=== PATIENT | male | born 2000 | race Caucasian/White ===

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

== ENCOUNTER 2022-10-31 17:36 | Emergency (ER) | payer MEDICAID ==
[~2022-10-31 17:36] MED LIST: ACHD5005 PO; SILV20CR14 TP
--- NOTE | 2022-10-31 18:07 | ED Abdominal Pain ---
General Chief Complaint: Abdominal/GI Problems Stated Complaint: ABD PAIN/DIARRHEA Nursing Triage Note: PT REPORTS DIARRHEA FOR A YEAR. HE HAS BRIGHT RED BLOOD WHEN HE WIPES AND HE REPORTS HIS STOOLS HAVE BEEN BLACK AT TIMES. HAS A KNOWN HEMMORHOID. History of Present Illness Date Seen by Provider: Oct 31, 2022 Time Seen by Provider: 18:05 Initial Comments 22-year-old male here with complaints of year-long symptoms of loose bowel movements diarrhea. Patient is having pain that comes and goes. States usually he will eat and then it will happen. Left go to the bathroom. Patient has not seen a doctor for this. No nausea or vomiting. States if he tries to hold it and then does not go then would later on when he does go all the time. No. Does have some blood in there. Mostly when he wipes. Will go couple times a day. Allergies and Home Medications Allergies Coded Allergies: No Known Drug Allergies (Unverified , 05/04/20) Patient Home Medication List Home Medication List Reviewed: Yes Hydrocodone/Acetaminophen (Hydrocodone-Acetamin 5-325 mg) 1 Each Tablet, 1 EACH PO Q4H Prescribed by: KEVIN SHAFFER on 05/04/202245 Silver Sulfadiazine (Silvadene) 20 Gm Cream..g., 20 GM TP DAILY Prescribed by: KEVIN SHAFFER on 05/04/202245 Review of Systems Review of Systems Constitutional: see HPI Past Cwthoud-Qinvax-Xyhbyu Hx Patient Social History Tobacco Use?: No Use of E-Cig and/or Vaping dev: No Substance use?: No Alcohol Use?: No Pt feels they are or have been: No Immunizations Up To Date PED Vaccines UTD: Yes Seasonal Allergies Seasonal Allergies: No Past Medical History Surgeries: No Respiratory: No Cardiac: No Neurological: No Genitourinary: No Gastrointestinal: No Musculoskeletal: No Endocrine: No HEENT: No Cancer: No Psychosocial: No Integumentary: No Blood Disorders: No Physical Exam Vital Signs Vital Signs - First Documented 10/31/22 17:46 Temp 36.8 Pulse 123 Resp 18 B/P (MAP) 136/82 (100) Pulse Ox 100 O2 Delivery Room Air Capillary Refill : Less Than 3 Seconds Height/Weight/BMI Height: '" Weight: lbs. oz. kg; 21.00 BMI Method: General Appearance: WD/WN, no apparent distress HEENT: PERRL/EOMI, TMs normal, pharynx normal Neck: non-tender, supple Respiratory: chest non-tender, lungs clear, normal breath sounds, no r espiratory distress Cardiovascular: regular rate, rhythm, no murmur Gastrointestinal: normal bowel sounds, soft, tenderness (lower abdomen) Extremities: normal inspection Skin: normal color, warm/dry Progress/Results/Core Measures Results/Orders Lab Results Laboratory Tests Test 10/31/22 18:18 10/31/22 18:20 Range/Units White Blood Count 12.0 H 4.3-11.0 10^3/uL Red Blood Count 4.38 4.30-5.52 10^6/uL Hemoglobin 10.7 L 13.3-17.7 g/dL Hematocrit 34 L 40-54 % Mean Corpuscular Volume 77 L 80-99 fL Mean Corpuscular Hemoglobin 24 L 25-34 pg Mean Corpuscular Hemoglobin Concent 32 32-36 g/dL Red Cell Distribution Width 14.7 H 10.0-14.5 % Platelet Count 447 H 130-400 10^3/uL Mean Platelet Volume 7.5 L 9.0-12.2 fL Immature Granulocyte % (Auto) 1 % Neutrophils (%) (Auto) 80 H 42-75 % Lymphocytes (%) (Auto) 11 L 12-44 % Monocytes (%) (Auto) 7 0-12 % Eosinophils (%) (Auto) 0 0-10 % Basophils (%) (Auto) 0 0-10 % Neutrophils # (Auto) 9.7 H 1.8-7.8 10^3/uL Lymphocytes # (Auto) 1.4 1.0-4.0 10^3/uL Monocytes # (Auto) 0.9 0.0-1.0 10^3/uL Eosinophils # (Auto) 0.0 0.0-0.3 10^3/uL Basophils # (Auto) 0.0 0.0-0.1 10^3/uL Immature Granulocyte # (Auto) 0.1 0.0-0.1 10^3/uL Sodium Level 132 L 135-145 MMOL/L Potassium Level 4.1 3.6-5.0 MMOL/L Chloride Level 95 L 98-107 MMOL/L Carbon Dioxide Level 26 21-32 MMOL/L Anion Gap 11 5-14 MMOL/L Blood Urea Nitrogen 9 7-18 MG/DL Creatinine 0.65 0.60-1.30 MG/DL Estimat Glomerular Filtration Rate 138 BUN/Creatinine Ratio 14 Glucose Level 154 H 70-105 MG/DL Calcium Level 8.8 8.5-10.1 MG/DL Corrected Calcium 9.4 8.5-10.1 MG/DL Total Bilirubin 0.2 0.1-1.0 MG/DL Aspartate Amino Transf (AST/SGOT) 7 5-34 U/L Alanine Aminotransferase (ALT/SGPT) 7 0-55 U/L Alkaline Phosphatase 67 40-136 U/L C-Reactive Protein 7.05 H <0.50 MG/DL Total Protein 7.4 6.4-8.2 GM/DL Albumin 3.3 3.2-4.5 GM/DL Lipase 13 8-78 U/L Urine Color YELLOW Urine Clarity CLEAR Urine pH 6.0 5-9 Urine Specific [place] >=1.030 1.016-1.022 Urine Protein NEGATIVE NEGATIVE Urine Glucose (UA) NEGATIVE NEGATIVE Urine Ketones NEGATIVE NEGATIVE Urine Nitrite NEGATIVE NEGATIVE Urine Bilirubin NEGATIVE NEGATIVE Urine Urobilinogen 0.2 < = 1.0 MG/DL Urine Leukocyte Esterase NEGATIVE NEGATIVE Urine RBC (Auto) NEGATIVE NEGATIVE Urine RBC 2-5 H /HPF Urine WBC 0-2 /HPF Urine Crystals NONE /LPF Urine Bacteria FEW H /HPF Urine Casts NONE /LPF Urine Mucus LARGE H /LPF Urine Culture Indicated NO My Orders Orders - MAGDALENE SMITH MD Cbc With Automated Diff (10/31/22 18:07) Comprehensive Metabolic Panel (10/31/22 18:07) Lipase (10/31/22 18:07) Abdomen (Kub) 1 View (10/31/22 18:07) Crp Fs (10/31/22 18:08) Urinalysis (10/31/22 18:09) Vital Signs/I&O 10/31/22 17:46 Temp 36.8 Pulse 123 Resp 18 B/P (MAP) 136/82 (100) Pulse Ox 100 O2 Delivery Room Air Blood Pressure Mean: 100 Fecal Occult: Positive Progress Progress Note : Time: 19:09 Progress Note Reviewed labs and x-ray with patient. Patient understands results. Waiting on urinalysis. Will likely discharge home. Patient needs to follow establish and follow-up with community health. Likely needs a colonoscopy for further evaluation. Diagnostic Imaging Comments [facility]. [place], [place] NAME: HAI MARTINEZ [facility] REC#: [id number] PT STATUS: REG ER : 2002 PHYSICIAN: MAGDALENE SMITH MD ADMIT DATE: 10/31/22/ER FS Signed Date of Exam:10/31/22 ABDOMEN (KUB) 1 VIEW EXAMINATION: Abdomen 1 view. HISTORY: Abdominal pain, diarrhea COMPARISON: None available. FINDINGS: There is a moderate amount of gas and stool throughout the colon. Nonobstructive bowel gas pattern. No radiopaque foreign body. The osseous structures are intact. IMPRESSION: Moderate stool burden without other acute abnormality in the abdomen. Dictated by: Dictated on workstation # [id number] Dict: 10/31/221825 Trans: 10/31/221828 [facility] [id number] Interpreted by: SHEBA SAUNDERS DO Electronically signed by: SHEBA SAUNDERS DO 10/31/221828 Departure Impression Primary Impression: Abdominal pain Qualified Codes: R10.84 - Generalized abdominal pain Additional Impressions: Constipation Qualified Codes: K59.04 - Chronic idiopathic constipation Anemia Qualified Codes: D50.8 - Other iron deficiency anemias Disposition: 01 HOME, SELF-CARE Condition: Stable Departure-Patient Inst. Referrals: JOSEPH GRIDER MD (PCP/Family) Primary Care Physician Patient Instructions: Constipation, Adult (DC), Gas and Bloating Add. Discharge Instructions: Recommend MiraLAX 1 capful daily until desired results. Or fiber and water. occupational analyst something like Metamucil or soluble fiber that you take daily. Recommend follow-up get established with [facility]. So they can evaluate your anemia and bowel issues further All discharge instructions reviewed with patient and/or family. Voiced understanding. Work/School Note: Family Work Note Patient Received Medical Care In the Emergency Department On: Oct 31, 2022 Patient Will Be Able to Return to Work/School On: Nov 01, 2022 Patient Restrictions: no restrictions MAGDALENE SMITH MD Oct 31, 2022 18:07
[2022-10-31 18:23] LABS: BASOPHILS % (AUTO) 0 % (0-10); EOSINOPHILS % (AUTO) 0 % (0-10); HEMATOCRIT 34 % (40-54); HEMOGLOBIN 10.7 g/dL (13.3-17.7); LYMPHOCYTES # (AUTO) 1.4 10^3/uL (1.0-4.0); LYMPHOCYTES % (AUTO) 11 % (12-44); MEAN CORPUSCULAR HEMOGLOBIN 24 pg (25-34); MEAN CORPUSCULAR HGB CONC 32 g/dL (32-36); MEAN CORPUSCULAR VOLUME 77 fL (80-99); MEAN PLATELET VOLUME 7.5 fL (9.0-12.2); MONOCYTES # (AUTO) 0.9 10^3/uL (0.0-1.0); MONOCYTES % (AUTO) 7 % (0-12); NEUTROPHILS # (AUTO) 9.7 10^3/uL (1.8-7.8); NEUTROPHILS % (AUTO) 80 % (42-75); PLATELET COUNT 447 10^3/uL (130-400)
[2022-10-31 18:25] LABS: BILIRUBIN,URINE NEGATIVE (NEGATIVE); CLARITY,URINE CLEAR; COLOR,URINE YELLOW; GLUCOSE, URINE (UA) NEGATIVE (NEGATIVE); KETONES,URINE NEGATIVE (NEGATIVE); LEUKOCYTE ESTERASE ,URINE NEGATIVE (NEGATIVE); NITRITE,URINE NEGATIVE (NEGATIVE); PROTEIN,URINE NEGATIVE (NEGATIVE)
--- NOTE | 2022-10-31 18:28 | Diagnostic Imaging Report ---
EXAMINATION: Abdomen 1 view. HISTORY: Abdominal pain, diarrhea COMPARISON: None available. FINDINGS: There is a moderate amount of gas and stool throughout the colon. Nonobstructive bowel gas pattern. No radiopaque foreign body. The osseous structures are intact. IMPRESSION: Moderate stool burden without other acute abnormality in the abdomen. Dictated by: Dictated on workstation # [id number]
[2022-10-31 18:51] LABS: ALBUMIN 3.3 GM/DL (3.2-4.5); BILIRUBIN,TOTAL 0.2 MG/DL (0.1-1.0); CALCIUM 8.8 MG/DL (8.5-10.1); CREATININE SERUM 0.65 MG/DL (0.60-1.30); POTASSIUM 4.1 MMOL/L (3.6-5.0); TOTAL PROTEIN 7.4 GM/DL (6.4-8.2)
[2022-10-31 19:19] LABS: BACTERIA,URINE FEW /HPF; WBC,URINE 0-2 /HPF
[2022-10-31 19:28] VITALS: BP 136/82
== END 2022-10-31 19:40 | disposition home or self-care (01) ==
LOC: EDUNIT# 17:36 → ER FS 17:37
DX: K59.00 Constipation, unspecified (principal); D64.9 Anemia, unspecified
CPT/HCPCS: 36415; 74018; 80053; 81000; 82274; 83690; 85025; 86141